=== PATIENT | female | born 1985 | race Caucasian/White ===

== ENCOUNTER → 2020-04-29 | Outpatient (CLI) | payer OTHER | LOC: COL.RAD 07:30 | DX: R10.11 Right upper quadrant pain (principal); R14.0 Abdominal distension (gaseous) ==

== ENCOUNTER → 2020-05-19 | Outpatient (CLI) | payer SELFPAY | LOC: SDCO 08:00 → COL.LAB 08:00 → SDCO 05-27 12:30 → EDSTATUS 06-02 12:30 → SDCO 06-02 14:30 | DX: Z01.818 Encounter for other preprocedural examination (principal); Z20.828 Contact with and (suspected) exposure to other viral communicable diseases ==

== ENCOUNTER 2020-07-05 08:16 | Inpatient (IN) | payer MEDICAID ==
[~2020-07-05] VITALS: Ht 170.2 cm; Wt 108.1 kg
[2020-09-15] VITALS (10 sets, daily range): BP systolic 100–115; BP diastolic 65–73; PULSE 67–81; TEMP 97.7–98.4
[2020-09-15] MEDS ORDERED: LEVOXYL0.075 MG PO (06:14)
[2020-09-15] MEDS ORDERED: PHENTERMINE15 MG PO (06:34)
[2020-09-15 06:41] LABS: CALCIUM 8.9 mg/dL (8.4-10.2); CREATININE, serum 0.75 (0.52-1.25); POTASSIUM 4.3 mmol/L (3.4-5.0)
[2020-09-15 06:43] LABS: HEMATOCRIT 44.1 % (37.0-47.0); HEMOGLOBIN 15.2 g/dl (12.5-16.0)
[2020-09-15] MEDS ORDERED: CHLOR-TABS4 MG PO (06:47)
--- NOTE | 2020-09-15 12:15 | NUR ---
Patient arrived to room via bed around 1155. Patient is alert and oriented. Vital signs stable. Patient is drowsy but wakes easily. Denies nausea at this time. Oriented to room. Explained how call light works. Abdominal binder to abdomen. No other changes at this time. Call light within reach.
--- NOTE | 2020-09-15 18:00 | NUR ---
Patient has been doing well since getting to the floor. She is slow with her intake. She stated she gets nausea easily. She stated she is having increased pain to her abdomen. Ultram given. No nausea at this time. She has voided once and walked in the hallways with help. IVF's infusing at ordered rate. No other changes at this time. Call light within reach.
--- NOTE | 2020-09-15 19:08 | NUR ---
RECEIVED CHANGE OF SHIFT REPORT FROM DAY SHIFT NURSE.
--- NOTE | 2020-09-15 20:00 | NUR ---
DENIES CHEST PAIN/SOA/NAUSEA AT THIS TIME. PATIENT GROGGY AT THIS TIME. IVF INFUSING WITH NO PROBLEMS.
[2020-09-16] VITALS: BP 98/58; PULSE 85; TEMP 98
[2020-09-16 04:00] VITALS: BP 103/64; PULSE 71; TEMP 97.9
[2020-09-16 06:51] LABS: HEMATOCRIT 36.3 % (37.0-47.0); HEMOGLOBIN 12.1 g/dl (12.5-16.0)
[2020-09-16 06:55] LABS: CALCIUM 8.3 mg/dL (8.4-10.2); CREATININE, serum 0.84 (0.52-1.25); MAGNESIUM 1.9 mg/dL (1.6-2.3); PHOSPHOROUS 3.3 mg/dL (2.5-4.5)
[2020-09-16 07:48] VITALS: BP 110/62; PULSE 76; TEMP 97.7
--- NOTE | 2020-09-16 07:50 | NUR ---
CHANGE OF SHIFT REPORT GIVEN TO DAY SHIFT NURSEJAMAR RN
--- NOTE | 2020-09-16 07:53 | NUR ---
Patient is resting in bed, states she feels 0 pain after medication and feels like she can walk/mobilize. Patient stated she already brushed her teeth and hair and took a bed bath early this morning. Patient stated she was hesistant at first to take pain medication, but feels relief and is thankful it was offered. Assisted the patient in scooting up in bed, call light within reach.
--- NOTE | 2020-09-16 09:23 | NUR ---
Initial visit; Patient thanked Component Assembler Supervisor for looking in on her and visiting with her about her kind Physician. Component Assembler Supervisor offered continued blessings and to keep Antonette in Her prayers.
--- NOTE | 2020-09-16 10:15 | NUR ---
CORNELIUS met with the patient to discuss discharge plan. The patient lives in [place] with her three children. Her children are 13, 3, and 2 years-old. She states that her 2 & 3 year-old are with her sister, Nicol (ph#[phone]), and [id number] and her 13 year-old is with her friend while she is here. She reports independence with ADLs and does not have any DME. The patient's primary care provider is HALI Yip and she receives her medications from [facility]. She reports no difficulties obtaining her meds. The patient does not have a DPOA-HC, but she was interested in obtaining a form. CORNELIUS provided. The patient is not , her children are under the age of 18. Her next of kin is her parents: Ramses Binu and Ry Landen. The patient plans to return home with her children upon discharge. She states that her aunt, Sharon Brown, will be coming to stay with them and help her out when she leaves here. No additional needs at this time.
--- NOTE | 2020-09-16 12:14 | NUR ---
Patient ambulated in hallway with student nurse. Patient reports that pain is currently controlled. Patient has been refusing meals, states she is afraid of pain assciated with bowel movement, and does not want to eat to avoid it. Educated patient on ambulating to stimulate bowels, bowel medications, and nutrition assisting with healing. Patient verbalized understanding and agreed to attempt to eat a small amount. Lunch tray ordered. Call light wihtin reach, no further needs at this time.
[2020-09-16 12:39] VITALS: BP 98/55; PULSE 71; TEMP 98.5
[2020-09-16 16:00] VITALS: BP 102/48; PULSE 77; TEMP 98.5
--- NOTE | 2020-09-16 17:14 | NUR ---
Lying in bed with eyes open. Alert and oriented x4. Rates pain in abd 1/10, explains that she is excited about how she is recovering and not having pain after this procedure. ABD bind and dressing CDI. CRUZ to left abd compressed with very minimal bloody drainage in bulb. Patient denies any additional needs or concerns at this time.
[2020-09-16 19:42] VITALS: BP 106/57; PULSE 72; TEMP 98.4
--- NOTE | 2020-09-16 21:30 | NUR ---
Patient assessed at this time. Alert and oriented x 4, and able to make needs known. Patient denies pain but his having nausea. Given PRN Zofran as requested. Peripheral IV to left hand with fluids running per orders. Site without redness, warmth, swelling, and pain. Denies having SOB and dyspnea. LS CTA. Respirations even and unlabored. HRR. Capillary refill less than 3 seconds. Non-tenting skin turgor. BSA x 4. Dressing to abodmen and abdominal binder CDI. CRUZ drain with bloody drainage. No edema. Voices no furhter questions, needs, or concerns at this time. Resting in bed with call light within reach.
[2020-09-17 03:15] VITALS: BP 104/58; PULSE 77; TEMP 98.3
--- NOTE | 2020-09-17 05:54 | NUR ---
Patient has been resting in bed with call light within reach. No further complaints of nausea this shift. Did complain of headache, but did not wanting anything for pain at that time except for scheduled APAP. When patient got up to go to the bathroom around 0300, blood was dripping from CRUZ drain site to abdomen. Reinforced site with drain sponge and mepilex. No active bleeding noted from site at this time. CRUZ drain emptied and documented. patient does continue to have IV fluids running at this per orders due to not eating/drinking much. Voices no questions, needs, or concerns at this time. Resting in bed with call light within reach.
[2020-09-17] MEDS ORDERED: ULTRAM 50MG TAB50 MG PO (08:19)
[2020-09-17] MEDS ORDERED: ZOFRAN 4MG T4 MG/TAB PO (08:19)
--- NOTE | 2020-09-17 08:25 | NUR ---
Dr. Najera was in and seen patient. He says that the patient may shower, wants patient to try to eat more and ambulate more as well. Dr. Najera will check back this afternoon for possible discharge. Speak with the patient and let her know that Dr. Najera says that she can shower, discuss shower care with incisions and dressings. Assessment completed. Patient says that she has been having a headache that she wishes would go away, only wants the scheduled Tylenol to help alleviate. Discuss with the patient that she can be having headache due to stress of procedure, being out of her normal routine, lack of sleep, and potentially needing to increase fluid intake. Patient also mentions that she drinks about 2 cups of coffee per day, explain that lack of caffeine can also contribute to headaches. Assist patient with getting in shower at this time. Bloody drainage noted from CRUZ drain site. Explain that as she is getting up and moving around more she may see an increase in discharge and that this is normal. Patient is aware that she will be going home with CRUZ drain and she does know how to drain it and to keep it compressed for it to drain. Will provide patient with drain sponges to apply when she is at home. Patient wants to sit and enjoy shower. Will call when she is done for assistance in applying drain sponge dressing to CRUZ site and also reapply binder.
--- NOTE | 2020-09-17 09:16 | NUR ---
Amada, surgical scrub tech, assisted patient with applying new Aquacel to mid abd incision as it was coming loose after her shower. Drain sponges applied to CRUZ site. Abd binder was reapplied.
[2020-09-17 09:30] VITALS: BP 112/68; PULSE 68; TEMP 98.2
--- NOTE | 2020-09-17 09:35 | NUR ---
Patient resting in bed, arouse when nurse walked in. Patient stated she was tired and did not get much sleep last night due to nausea. States she feels better this morning, but would like to rest before she leaves. Call light within reach.
--- NOTE | 2020-09-17 09:35 | NUR ---
Check on patient and she says that since her shower she feels so much better, "like a new person". Patient says that she has ordered breakfast because she now has an appetite. Patient says that she plans to walk in the halls. Denies additional needs or concerns at this time.
[2020-09-17 12:00] VITALS: BP 112/64; PULSE 79; TEMP 98.4
--- NOTE | 2020-09-17 14:02 | NUR ---
Lying in bed talking on cell phone. Patient says that she feels very good at this time. Does not have any pain or nausea. Has ordered some food to eat as she does have an appetite at this time. Has been changing her own drain dressings as needed and also emptying her CRUZ as well. Patient says that she feels comfortable to go home today. Her sister in law will be here to pick her up but it would not be until around 1900. Explain that we will provide update to Dr. Najera so that the orders can be placed. Explained that when her ride comes to let us know and we will assist her in getting to the vehicle with her personal items and it is no cabrera for her ride to get here. Patient verbalizes udnerstanding and denies needs at this time. Dr. Najera updated and will place discharge orders.
[2020-09-17 16:25] VITALS: BP 107/66; PULSE 84; TEMP 98
--- NOTE | 2020-09-17 16:26 | NUR ---
Sitting up in bed looking on cell phone. Denies pain or nausea. Patient says that she is getting excited to go home. Review discharge instructions with the patient. Denies questions, verbalizes understanding, signs discharge paperwork. Patient will let staff know when her ride is here to pick her up. Denies additional needs at this time.
--- NOTE | 2020-09-17 19:48 | NUR ---
Pt ride called from downstairs. Pt was transported out via wheelchair by the STRUCTURAL WORKER. Pt had no concerns at this time. Pt took all education print-outs given to her previously.
== END 2020-09-17 19:50 | disposition home or self-care (01) | DRG 337 ==
LOC: SDCO 07-27 14:30 → INPTSU 09-15 05:53 → SURG 09-15 07:30 → SDCO 09-15 14:30 → EDSTATUS 09-15 14:30 → SURG 09-17 19:50
PROVIDERS: ADMIT Surgery
PROC: 0DNU0ZZ Release Omentum, Open Approach (ICD-10-PCS; 2020-09-15)
PROC: 0WUF0JZ Supplement Abdominal Wall with Synthetic Substitute, Open Approach (ICD-10-PCS; principal; 2020-09-15 07:30)
DX: K43.9 Ventral hernia without obstruction or gangrene (principal); E03.9 Hypothyroidism, unspecified; K66.0 Peritoneal adhesions (postprocedural) (postinfection); Z88.0 Allergy status to penicillin
CPT/HCPCS: A4314; A9284; C1781; J0690; J1100; J1650; J1885; J2250; J2405; J2550; J2704; J2795; J3010; J7120

== ENCOUNTER → 2020-07-19 | Outpatient (CLI) | payer MEDICAID | LOC: COL.RAD 08:07 | DX: K43.9 Ventral hernia without obstruction or gangrene (principal); K42.9 Umbilical hernia without obstruction or gangrene | CPT/HCPCS: Q9967 ==

== ENCOUNTER 2023-09-20 12:25 | Observation (INO) | payer MEDICAID ==
[~2023-09-20] VITALS: Ht 170.2 cm; Wt 126.0 kg
[~2023-09-20 12:25] MED LIST: CHLOR-TABS4 MG PO; LEVOXYL0.075 MG PO; PHENTERMINE15 MG PO; ULTRAM 50MG TAB50 MG PO; ZOFRAN 4MG T4 MG/TAB PO
[2023-09-20 12:58] LABS: COLLECTION METHOD CLEAN CATCH
[2023-09-20] MEDS ORDERED: NS 1,000 ML IV ONE (13:00)
[2023-09-20] MEDS ORDERED: Ketorolac 30 MG/ML VIAL IV ONE (13:00)
[2023-09-20] MEDS ORDERED: Morphine 4 MG/ML VIAL IV ONE (13:00)
[2023-09-20 13:03] LABS: BASO % 0.8 % (0.0-2.0); EOS # 0.3 K/mm3 (0.0-0.7); EOS % 5.8 % (0.0-4.0); GRAN % 62.2 % (42.2-75.2); HEMATOCRIT 44.1 % (37.0-47.0); HEMOGLOBIN 15.1 g/dl (12.5-16.0); LYMPH % 19.8 % (20.0-51.0); MEAN CELL VOLUME 88 fl (80.0-100.0); MEAN CORPUSCULAR HEMOGLOBIN 30 pg (27-31); MEAN CORPUSCULAR HGB CONC 34 g/dl (33.0-37.0); MEAN PLATELET VOLUME 11.2 fl (7.4-10.4); MONO # 0.6 K/mm3 (0.1-0.6); MONO % 11.4 % (1.7-9.3); PLATELET COUNT 223 K/mm3 (130-400); RED BLOOD COUNT 4.99 M/mm3 (4.10-5.30); REDCELL DISTRIBUTION WIDTH-CV 13.1 % (11.5-14.5)
[2023-09-20 13:08] LABS: URINE APPEARANCE CLEAR (CLEAR/HAZY); URINE BLOOD NEGATIVE (NEGATIVE); URINE COLOR YELLOW (YELLOW); URINE GLUCOSE NEGATIVE (NEGATIVE); URINE KETONE 2+ (NEGATIVE); URINE NITRATE NEGATIVE (NEGATIVE); URINE PROTEIN(semi-quant) TRACE (NEGATIVE); URINE UROBILINOGEN 0.2 E.U/dL (0.2-1.0)
[2023-09-20 13:21] LABS: ALBUMIN 4.3 g/dL (3.5-5.0); BILIRUBIN,TOTAL 0.4 mg/dL (0.2-1.2); CALCIUM 9.1 mg/dL (8.4-10.2); CREATININE, serum 0.88 mg/dL (0.57-1.11); POTASSIUM 4.1 mEq/L (3.5-4.5); TOTAL PROTEIN 8.1 g/dl (6.2-8.1)
[2023-09-20] MEDS ORDERED: NS 100 ML IV SCH (13:41)
[2023-09-20] MEDS ORDERED: Iohexol 300 - 100 ML VIAL IV ONE (13:41)
[2023-09-20] MEDS ORDERED: VITAMIN D31000 I1 PO (15:36)
[2023-09-20] MEDS ORDERED: Ondansetron 4 MG/2 ML VIAL IV PRN (15:45)
[2023-09-20] MEDS ORDERED: Ketorolac 15 MG/ML VIAL IV PRN (15:45)
[2023-09-20] MEDS ORDERED: Acetaminophen 325 MG TAB PO PRN (15:45)
[2023-09-20] MEDS ORDERED: LR 1,000 ML IV SCH (15:45)
[2023-09-20 16:00] VITALS: BP 124/78; PULSE 84; TEMP 98.1
--- NOTE | 2023-09-20 17:07 | NUR ---
PATIENT BROUGHT TO FLOOR AT APPROXIMATELY 1650. PATIENT INTAKE PERFORMED. VITALS OBTAINED. PATIENT REPORTS PAIN 8/10, REPORTS NARCOTICS CREATE VOLATILE VOMITING, ROOM SPINNING, AND INCREASED PAIN. IV TO LEFT HAND, FLUSHES WELL. PATIENT PACING IN ROOM, REPORTING PAIN IS STABBING WITHIN HER RIGHT FLANK AREA RADIATING TO BACK. CALLED DR. CHERY TO OBTAIN ORDERS. DR CHERY INFORMED THIS NURSE THAT PATIENT WAS EDUCATED ON BOWEL REST, DIAGNOSIS, AND ORDERS. THIS NURSE REPORTED PATIENT'S CONCERNS TO DR. CHERY. NEW ORDERS ARE FOLLOWS: K PAD, ULTRAM 50MG Q6 PRN, PATIENT MAY TAKE PO PAIN MEDS WITH SIPS OF WATER, AND DR CHERY WILL REVIEW AM LABS 09/20.
[2023-09-20] MEDS ORDERED: traMADol 50 MG TAB PO PRN (17:30)
[2023-09-20 19:34] VITALS: BP 96/58; PULSE 89; TEMP 98.6
--- NOTE | 2023-09-20 19:40 | NUR ---
PT A&O RESTING IN BED. VSS ON ROOM AIR. PT REPORTS RT FLANK PAIN 11/18, REPORTS PAIN HAD IMPROVED WITH PRNS GIVEN EARLIER BUT IS STARTING TO HURT AGAIN WHEN COUGHING. DENIES NEED FOR PAIN MEDS AT THIS TIME. PT USING KPAD ON ABD. DENIES N/V. LR INFUSING TO LEFT HAND @ 75MLS. PT DENIES FURTHER NEEDS AT THIS TIME. CALL LIGHT IN REACH
[2023-09-20 21:00] VITALS: BP_SYST 96
[2023-09-20 23:37] VITALS: BP 124/80; PULSE 87; TEMP 98.4
[2023-09-20 23:41] VITALS: BP_SYST 124
--- NOTE | 2023-09-20 23:44 | NUR ---
PT RESTING IN BED WITH UNLABORED RESP. CALL LIGHT IN REACH
[2023-09-21 04:02] VITALS: BP 114/72; PULSE 88; TEMP 98.4
[2023-09-21 04:39] VITALS: BP_SYST 114
--- NOTE | 2023-09-21 05:16 | NUR ---
PER MAR GAVE PRN TYLENOL PER PT REQUEST FOR PAIN 3/10 FLANK PAIN. DENIES OTHER NEEDS THIS MORNING. CALL LIGHT IN REACH
[2023-09-21 06:37] LABS: BASO % 0.6 % (0.0-2.0); EOS # 0.3 K/mm3 (0.0-0.7); EOS % 8.7 % (0.0-4.0); HEMOGLOBIN 13.4 g/dl (12.5-16.0); LYMPH # 0.8 K/mm3 (1.2-3.4); LYMPH % 23.6 % (20.0-51.0); MEAN CELL VOLUME 88 fl (80.0-100.0); MEAN CORPUSCULAR HEMOGLOBIN 30 pg (27-31); MEAN CORPUSCULAR HGB CONC 34 g/dl (33.0-37.0); MEAN PLATELET VOLUME 11.1 fl (7.4-10.4); MONO # 0.4 K/mm3 (0.1-0.6); MONO % 10.1 % (1.7-9.3); RED BLOOD COUNT 4.41 M/mm3 (4.10-5.30); REDCELL DISTRIBUTION WIDTH-CV 13.1 % (11.5-14.5)
[2023-09-21 06:52] LABS: ALBUMIN 3.5 g/dL (3.5-5.0); BILIRUBIN,TOTAL 0.4 mg/dL (0.2-1.2); CALCIUM 8.5 mg/dL (8.4-10.2); CREATININE, serum 0.81 mg/dL (0.57-1.11); POTASSIUM 3.8 mEq/L (3.5-4.5); TOTAL PROTEIN 6.7 g/dl (6.2-8.1)
[2023-09-21 06:58] LABS: PLATELET COUNT 161 K/mm3 (130-400)
--- NOTE | 2023-09-21 08:00 | NUR ---
PATIENT IS A&O. VSS. DENIES PAIN OR NAUSEA. PATIENT REPORTS SHE IS BETTING MUCH BETTER. SHE REPORTS PASSING FLATUS AND SAID HER STOMACH HAS REALLY WENT DOWN, BM YESTERDAY. CURRENTLY NPO FOR BOWL REST UNTIL PROVIDER ROUNDS. IV FLUIDS INFUSING VIA PUMP INTO LEFT HAND IV. K-PAD PRN FOR COMFORT. HEAD TO TOE ASSESSMENT WNL. STUDENT NURSE WORKING WITH PATIENT TODAY, SEE CHARTING. NO OTHER NEEDS AT THIS TIME. CALL LIGHT IN REACH.
[2023-09-21 08:13] VITALS: BP 112/64; PULSE 76; TEMP 98.8
--- NOTE | 2023-09-21 08:25 | NUR ---
PATIENT IN SHOWER INDEPENDENTLY. TOLERATED ACTIVITY WELL. NOW MAKING ROUNDS, SEE NOTES.
[2023-09-21 09:00] VITALS: BP_SYST 119
--- NOTE | 2023-09-21 10:56 | NUR ---
D: Initial visit: Balloon Pilot stopped by room on rounds. Pt was eating and content. A: Pt was in good spirits. Pt has no needs right now, but appreciated the visit. P: Balloon Pilot informed pt that if she needed anything from the packaging line attendant area to let her nurse know. Balloon Pilot will follow up as needed.
[2023-09-21 11:37] VITALS: BP 119/79; PULSE 77; TEMP 97.9
[2023-09-21 12:05] VITALS: BP_SYST 119
[2023-09-21] MEDS ORDERED: ULTRAM 50MG TAB50 MG PO (15:28)
[2023-09-21] MEDS ORDERED: MOTRIN 600600 MG/TAB PO (15:29)
[2023-09-21] MEDS ORDERED: TYLENOL 325MG325 MG PO (15:29)
--- NOTE | 2023-09-21 15:29 | NUR ---
Data Network Architect met with patient to discuss discharge planning. Patient lives in [place], [place] with her three children ages 17, 6, and 5. Patient stated they are in school right now but that her sister, Negar (ph#[phone]) is here to provide support. Patient sees HALI Yip at [facility] for primary care and obtains medications from [facility] with no difficulties. Patient does not use any DME and is independent with ADLS. Patient does not have DPOA-HC and legal next of kin are her parents, Aranza Schuster and Karissa Schmid. Patient is interested in DPOA-HC form, which SW provided. Patient stated she has a notary at work she can use. Patient is hopeful to return home today. Discharge Plan: Home
--- NOTE | 2023-09-21 16:15 | NUR ---
PATIENT DISCHARGING. GAVE DISCHARGE INSTRUCTIONS, E-SCRIPTS SENT, AND DISCUSSED F/U APT. ANSWERED QUESTIONS/CONCERNS. IV WAS DC'D AND COVERED WITH COBAN. PATIENT IS DRESSED, PACKED AND WAITING FOR HER RIDE AT 1700.
--- NOTE | 2023-09-21 16:55 | NUR ---
PATIENT'S RIDE IS HERE AND SHE IS DISCHARGED TO PRIVATE VEHICLE VIA AMBULATORY.
== END 2023-09-21 16:55 | disposition home or self-care (01) ==
LOC: COL.ER 12:25 → SURG 15:41
PROVIDERS: Physician Assistant; ADMIT Surgery
DX: R10.9 Unspecified abdominal pain (principal); Z87.891 Personal history of nicotine dependence
CPT/HCPCS: G0378; J1885; J7030; J7120; Q9967

== ENCOUNTER 2023-09-28 16:39 | Inpatient (IN) | payer BC ==
[~2023-09-28 16:39] MED LIST changes: +MOTRIN 600600 MG/TAB PO; +TYLENOL 325MG325 MG PO; +VITAMIN D31000 I1 PO
[2023-11-20] VITALS (12 sets, daily range): BP systolic 105–115; BP diastolic 61–74; PULSE 82–96; TEMP 97.7–98.2
[2023-11-20] MEDS ORDERED: MULTIVITAMIN FO1 CAP PO (12:11)
[2023-11-20] MEDS ORDERED: Lidocaine 1% w EPI (1:100,000) 20 ML Multi-Dose VIAL ONE (12:17)
[2023-11-20] MEDS ORDERED: dexAMETHasone 10 MG/ML VIAL ONE (12:19)
[2023-11-20] MEDS ORDERED: NS 10 ML IV ONE (12:20)
[2023-11-20] MEDS ORDERED: Vecuronium 10 MG VIAL IV ONE (12:20)
[2023-11-20] MEDS ORDERED: fentaNYL 50 MCG/ML 2 ML VIAL ONE ×2 (12:21→13:48)
[2023-11-20] MEDS ORDERED: Midazolam 2 MG/2 ML VIAL ONE (12:22)
[2023-11-20] MEDS ORDERED: Lidocaine PF 2% (20 MG/ML) 5 ML VIAL ONE (12:23)
[2023-11-20] MEDS ORDERED: ePHEDrine 50 MG/ML VIAL ONE (13:09)
[2023-11-20] MEDS ORDERED: Glycopyrrolate 0.2 MG/ML 1 ML VIAL ONE (13:14)
[2023-11-20] MEDS ORDERED: Ondansetron 4 MG/2 ML VIAL ONE (13:33)
[2023-11-20] MEDS ORDERED: diphenhydrAMINE 50 MG/ML 1 ML VIAL ONE (13:39)
[2023-11-20] MEDS ORDERED: BUPivacaine PF 0.5% w EPI (1:200,000) 10 ML VIAL IJ ONE (14:01)
[2023-11-20] MEDS ORDERED: Topical Skin Adhesive 1 EACH (1 ML) TOP ONE (14:01)
[2023-11-20] MEDS ORDERED: Ketorolac 30 MG/ML VIAL ONE (14:05)
[2023-11-20] MEDS ORDERED: LR 1,000 ML IV ONE (14:14)
[2023-11-20] MEDS ORDERED: traMADol 50 MG TAB PO PRN (15:00)
[2023-11-20] MEDS ORDERED: LR 1,000 ML IV SCH (15:00)
[2023-11-20] MEDS ORDERED: Naloxone 0.4 MG/ML VIAL IV PRN (15:00)
[2023-11-20] MEDS ORDERED: Ondansetron 4 MG/2 ML VIAL IV PRN ×2 (15:00→15:15)
[2023-11-20] MEDS ORDERED: HYDROmorphone 0.5 MG/0.5 ML SYRINGE IV PRN (15:00)
[2023-11-20] MEDS ORDERED: Meperidine 50 MG/ML 1 ML VIAL IV PRN (15:15)
--- NOTE | 2023-11-20 15:39 | NUR ---
PATIENT UP TO FLOOR AT APPROXIMATELY 1530. POST OP VITALS RUNNING. POST OP FLUIDS INFUSING INTO LEFT HAND. LAPS X4 CDI WITH SKIN GLUE. ONE OPEN, SMALL WOUND UNCOVERED, PACU NURSE REPORTED THAT PATIENT PRESENTED TODAY WITH OPEN, HEALING WOUND FROM PRIOR ABDOMINAL SURGERY. PATIENT DROWSY BUT AROUSABLE. SCD'S APPLIED. PATIENT ON 2L NC. NO FURTHER NEEDS. CALL LIGHT IN REACH.
[2023-11-20] MEDS ORDERED: Gabapentin 100 MG CAP PO ONE (18:53)
[2023-11-20] MEDS ORDERED: Ibuprofen 600 MG TAB PO SCH (18:53)
--- NOTE | 2023-11-20 20:30 | NUR ---
PATIENT AMBULATED ENTIRE MED/SURG UNIT AND TOLERATED WELL. STATES GAS ENTRAPEMENT IS RESOLVING. STATES NO NEEDS AT THIS TIME.
--- NOTE | 2023-11-20 21:00 | NUR ---
UPON SHIFT ASSESSMENT, LYN WAS AWAKE IN BED EATING DINNER TRAY. SHE IS CHEERFUL AND HAS FAMILY VISITING BEDSIDE. ABDOMINAL SURGICAL SITE CDI WITH GLUE AND OPEN TO AIR. BOWEL SOUND ARE SILENT IN RT QUADRANTS AND HYPO ACTIVE IN LOWER LEFT. WILL REASSESS.ATIENT DENIES PAIN OR NEEDS AT THIS TIME. SHIFT ASSESSMENT COMPLETE.
--- NOTE | 2023-11-20 22:00 | NUR ---
PATIENT REQUESTING TO AMBULATE UNIT AGAIN. AMBULATED WELL ENTIRE MED/SURG UNIT AND IS CHEERFUL. VS ARE WNL. PATIENT STATES NO NEEDS AT THIS TIME.
[2023-11-21 01:00] VITALS: BP_SYST 110
[2023-11-21 03:35] VITALS: BP 101/66; PULSE 84; TEMP 97.9
[2023-11-21 05:13] VITALS: BP_SYST 101
--- NOTE | 2023-11-21 08:00 | NUR ---
Patient sitting up in bed, A&Ox4. VSS. IV CDI. Denies pain and discomfort. Burping, not passing gas. Patient ambulating as tolerated. Call light within reach
[2023-11-21 08:13] VITALS: BP 108/72; PULSE 70; TEMP 98.4
[2023-11-21] MEDS ORDERED: Gabapentin 100 MG CAP PO SCH (09:00)
[2023-11-21] MEDS ORDERED: ULTRAM 50MG TAB50 MG PO (10:35)
[2023-11-21] MEDS ORDERED: NEURONTIN100 MG/CAP PO (10:35)
[2023-11-21] MEDS ORDERED: Motrin PO (10:51)
[2023-11-21 11:53] VITALS: BP 114/76; PULSE 70; TEMP 97.7
--- NOTE | 2023-11-21 12:32 | NUR ---
Discharge paperwork reviewed with the patient. Patient verbalized an understanding to follow doctors orders. IV removed, tip intact. Gauze and coban applied. Patient getting dressed, waiting on ride to arrive. Call light within reach
--- NOTE | 2023-11-21 13:10 | NUR ---
PAtient ambulated independently with nursing staff. No further needs expressed
== END 2023-11-21 13:10 | disposition home or self-care (01) | DRG 336 ==
LOC: SURG 11-20 12:30 → INPTSU 11-20 13:18 → SURG 11-20 15:25
PROVIDERS: ADMIT Surgery
PROC: 8E0W4CZ Robotic Assisted Procedure of Trunk Region, Percutaneous Endoscopic Approach (ICD-10-PCS; 2023-11-20)
PROC: 0DNU4ZZ Release Omentum, Percutaneous Endoscopic Approach (ICD-10-PCS; principal; 2023-11-20 12:30)
DX: K56.50 Intestinal adhesions [bands], unspecified as to partial versus complete obstruction (principal); Z68.41 Body mass index [BMI] 40.0-44.9, adult; E66.01 Morbid (severe) obesity due to excess calories; E03.9 Hypothyroidism, unspecified; G47.33 Obstructive sleep apnea (adult) (pediatric); J30.2 Other seasonal allergic rhinitis; Z88.0 Allergy status to penicillin; Z79.890 Hormone replacement therapy; Z79.899 Other long term (current) drug therapy
CPT/HCPCS: J0690; J1100; J1200; J1885; J2250; J2405; J2704; J2795; J3010; J7120